=== PATIENT | male | born 1970 | race Caucasian/White ===

== ENCOUNTER 2018-05-12 18:59 | Emergency (ER) | payer OTHER ==
[2018-05-12] MEDS ORDERED: HYDROCOD/APAP 5/325 PREPACK#6 BTL TAKEHOME ONE (20:20)
--- NOTE | 2018-05-12 20:20 | EDPHY ---
H & P Time Seen by Provider: 05/12/18 19:21 HPI/ROS: Chief complaint: Left ankle injury History of present illness: This is a 48-year-old male who presents to the emergency department for a left ankle injury. He reports this occurred yesterday when he was hiking and rolled his ankle. He reports diffuse swelling to the ankle. It is difficult to ambulate. He denies open wounds. He denies abnormal coolness or paresthesias in the foot. The knee, lower leg and foot are unremarkable. Smoking Status: Never smoked Physical Exam: General: Alert, nontoxic. Skin: No open wounds to the left lower extremity. Musculoskeletal: Diffuse edema to left ankle. Difficulty moving the ankle. Tenderness to the medial malleolus. The Achilles is intact. The knee, proximal lower leg, foot are unremarkable. He can move the knee and digits of the foot well. Vascular: DP and PT pulses 2+. Neurologic: Sensation appears intact throughout the left lower extremity. Constitutional: Initial Vital Signs Temperature (C) 37.0 C 05/12/18 19:04 Heart Rate 78 05/12/18 19:04 Respiratory Rate 16 05/12/18 19:04 Blood Pressure 136/90 H 05/12/18 19:04 O2 Sat (%) 95 05/12/18 19:04 O2 Delivery Mode Room Air Allergies/Adverse Reactions: walnut Allergy (Verified 05/12/18 19:03) Home Medications: Medication Instructions Recorded Ibuprofen 05/12/18 Proscar 5 MG (*) 05/12/18 MDM/Departure - MDM Imaging Results: Imaging Impressions Ankle X-Ray 05/12/18 19:17 Impression: Prior left ankle trauma, with lateral soft tissue swelling acutely, without acute fracture identified. Imaging: I viewed and interpreted images myself Procedures: Procedure: Splint placement. An Jasvir wrap and Velcro stirrup splint was applied. After application of the splint I returned and re-examined the patient. The splint was adequately immobilizing the joint and distal to the splint the patient's circulation and sensation was intact. Patient was fitted with crutches and given instructions on use. Medications Given: Discontinued Medications Hydrocodone Bitart/Acetaminophen ([place] 5/325mg Prepack#6) 1 btl TAKEHOME EDNOW ONE Stop: 05/12/18 20:21 Last Admin: 05/12/18 20:26 Dose: 1 btl ED Course/Re-evaluation: Patient seen under the supervision of my secondary supervising physician Dr. Dinesh Gaona. Patient presents for left ankle injury. The left lower extremity is neurovascularly intact. X-rays negative. Likely a sprain/strain. Symptomatic care is discussed. He is to follow up with his primary care doctor for recheck. Return precautions are given. Differential Diagnosis: Included but not limited to contusion, sprain or strain, bony fracture, joint dislocation - Depart Disposition: Home, Routine, Self-Care Clinical Impression: Ankle sprain Qualifiers: Encounter type: initial encounter Involved ligament of ankle: unspecified ligament Laterality: left Qualified Code(s): S93.402A - Sprain of unspecified ligament of left ankle, initial encounter Condition: Good Instructions: Ankle Sprain (ED) Additional Instructions: Follow-up with your primary care doctor for recheck In regards to pain control see the following: Use ibuprofen [600] mg [3] times a day for the next 2-3 days for pain In addition You have been prescribed [[place]] for pain. [[place]] contains Tylenol, do not take extra Tylenol/acetaminophen/Apap with it. It is sedating. Ice the injury, 20 min on, at least 3 times daily for the first 3 days after injury, start using heat 72 hr after injury If symptoms worsen or new symptoms develop return to the emergency room for recheck Referrals: Chary Melendez MD [Primary Care Provider] - As per Instructions
[2018-05-12 20:31] VITALS: BP 122/86
== END 2018-05-12 20:31 | disposition home or self-care (01) ==
DX: S93.402A Sprain of unspecified ligament of left ankle, initial encounter (principal); W18.49XA Other slipping, tripping and stumbling without falling, initial encounter; Y92.828 Other wilderness area as the place of occurrence of the external cause; Y93.01 Activity, walking, marching and hiking
CPT/HCPCS: L4350